=== PATIENT | female | born 1950 | race Caucasian/White ===

== ENCOUNTER → 2017-05-12 15:16 | Outpatient (CLI) | payer MEDICARE, OTHER, SELFPAY ==
--- NOTE | 2017-05-12 15:26 | RAD_ITS ---
STUDY: X-RAY - LUMBAR SPINE REASON FOR EXAM: Female, 66 years old. Pain TECHNIQUE: 5 view(s) of the lumbar spine were obtained. COMPARISON: None FINDINGS: There is curvature at the thoracolumbar region with convexity to the left. There is minimal degenerative spondylolisthesis at L3-L4. There is degenerative disc disease with vacuum phenomenon at L4-L5. Osteopenia. The soft tissue structures are unremarkable. RAD/L/S Spine Min 4 Views IMPRESSION: Minimal degenerative spondylolisthesis, L3-L4 Mild levoscoliosis at the thoracolumbar region Osteopenia Degenerative disc disease, L4-L5 Electronically Signed: Reza Diaz MD at 22:27 EST Tel , Service support ,
== END ==
PROVIDERS: Family Provider Family Medicine; PCP Family Medicine; Visit Provider Family Medicine
DX: S39.012A Strain of muscle, fascia and tendon of lower back, initial encounter (principal); X58.XXXA Exposure to other specified factors, initial encounter
CPT/HCPCS: 72110

== ENCOUNTER → 2017-06-10 08:57 | Outpatient (CLI) | payer MEDICARE, OTHER, SELFPAY ==
--- NOTE | 2017-06-10 09:30 | RAD_ITS ---
STUDY: X-RAY - PELVIS AND LEFT HIP REASON FOR EXAM: Female, 66 years old. Fell off a stepladder feels like hip popped out of place. Pain with weightbearing TECHNIQUE: Radiological exam, hip, unilateral, with pelvis when performed; 2 or 3 views. COMPARISON: None. FINDINGS: There is a non-specific bowel gas pattern. Normal visualized soft tissue structures. There is mild narrowing with cortical sclerosis and osteophyte formation of the sacroiliac joint consistent with degenerative osteoarthritic changes. Normal bilateral superior and inferior pubic rami. There are mild degenerative changes of the pubic symphysis with articular narrowing and sclerosis. Normal bilateral ischial tuberosities. Normal visualized femoral head. Normal acetabulum. There is mild articular joint space narrowing of the hip. RAD/Hip 2-3 Views with Pelvis IMPRESSION: Mild degenerative changes. There is no acute displaced fracture or dislocation. Electronically Signed: Naomy Rodriguez MD at 7:37 EDT , Service support ,
== END ==
PROVIDERS: Family Provider Family Medicine; PCP Family Medicine; Visit Provider Family Medicine
DX: M25.552 Pain in left hip (principal)
CPT/HCPCS: 73502

== ENCOUNTER → 2017-07-02 12:53 | Outpatient (CLI) | payer MEDICARE, OTHER, SELFPAY ==
--- NOTE | 2017-07-02 12:55 | BI_ITS ---
MAMMOGRAPHY - BILATERAL SCREENING 3-D AGUSTÍN SYNTHESIS REASON FOR EXAM: Female, 66 years old. Bilateral Screening 3-D tomosynthesis PERTINENT HISTORY: No significant family history. TECHNIQUE: 2-D mammograms and 3-D Agustín synthesis of the breast (s) were performed. CAD was performed. COMPARISON: June 03, 2016. FINDINGS: The breast composition is composed of scattered fibroglandular density. Scattered benign calcifications are seen. No dense spiculated masses or suspicious microcalcifications are identified. No architectural distortion is identified. There is no skin thickening or retraction. There has been no significant change since the prior study. BI/SCREENING MAMM (CAD), BILAT IMPRESSION: No mammographic signs of malignancy. Routine yearly mammograms recommended. ASSESSMENT CATEGORY: BIRADS Category 1: Negative. A letter regarding these results will be sent to the patient by the facility within 30 days. FOLLOW UP RECOMMENDATION: Yearly follow up mammogram recommended. (A) Approximately 10% of breast cancers are not detected by mammography. A normal mammogram should not delay biopsy of a clinically suspicious abnormality. Electronically Signed: Micah Meyer MD at 15:22 EDT , Service support ,
== END ==
PROVIDERS: Family Provider Family Medicine; PCP Family Medicine; Visit Provider Family Medicine
DX: Z12.31 Encounter for screening mammogram for malignant neoplasm of breast (principal)
CPT/HCPCS: 77063; 77067

== ENCOUNTER → 2017-07-09 13:46 | Outpatient (CLI) | payer MEDICARE, OTHER, SELFPAY ==
--- NOTE | 2017-07-09 13:48 | CT_ITS ---
Exam: CT of the left hip. HISTORY: Trauma. Pain. COMPARISON: None DLP: 1333 CTDI: 47 FINDINGS: No acute fracture or dislocation. Normal bone contours. Mineralization appears within normal limits. No significant degenerative changes. Visualized soft tissues suggest a 7 cm soft tissue mass in the left pelvis, probably PICKER / PACKER origin. Suggest further evaluation with ultrasound. CT/Extremity Lower without Contra IMPRESSION: Normal appearance of the visualized left pelvis and hip. 7 cm soft tissue mass in the left pelvis. Electronically Signed: Gil Alexander MD at 15:19 EDT , Service support ,
== END ==
PROVIDERS: Family Provider Family Medicine; PCP Family Medicine; Visit Provider Family Medicine
DX: M25.552 Pain in left hip (principal)
CPT/HCPCS: 73700

== ENCOUNTER → 2017-07-13 13:40 | Outpatient (CLI) | payer MEDICARE, OTHER, SELFPAY ==
--- NOTE | 2017-07-13 14:18 | US_ITS ---
STUDY: ULTRASOUND OF THE FEMALE PELVIS - COMPLETE REASON FOR EXAM: Female, 67 years old. Status post hysterectomy. Left pelvic mass. LMP: TECHNIQUE: Transabdominal and Transvaginal TECHNICAL QUALITY: Adequate. COMPARISON: CT of the left hip, July 09, 2017. FINDINGS: The uterus is surgically absent. The right ovary is not visualized. There is no visualized right adnexal mass or complex lesion. The left ovary is visualized. The left ovary measures 6.9 x 5.6 x 4.7 cm. There is a 6.7 x 4.5 x 4.6 cm cyst. There is no visualized left adnexal mass or complex lesion. There is normal arterial and normal venous vascularity. There is no fluid in the cul-de-sac. The pre void volume of the bladder was 330 ml. The urinary bladder appears grossly normal. US/Pelvic (Non ) IMPRESSION: 1. Status post hysterectomy. 2. Large left ovarian cyst. This correlates with the mass seen on CT. 3. Nonvisualization of left ovary. Electronically Signed: Walt Browne DO at 21:54 EDT Tel [phone], Service support ,
--- NOTE | 2017-07-13 14:18 | US_ITS ---
STUDY: ULTRASOUND OF THE FEMALE PELVIS - COMPLETE REASON FOR EXAM: Female, 67 years old. Status post hysterectomy. Left pelvic mass. LMP: TECHNIQUE: Transabdominal and Transvaginal TECHNICAL QUALITY: Adequate. COMPARISON: CT of the left hip, July 09, 2017. FINDINGS: The uterus is surgically absent. The right ovary is not visualized. There is no visualized right adnexal mass or complex lesion. The left ovary is visualized. The left ovary measures 6.9 x 5.6 x 4.7 cm. There is a 6.7 x 4.5 x 4.6 cm cyst. There is no visualized left adnexal mass or complex lesion. There is normal arterial and normal venous vascularity. There is no fluid in the cul-de-sac. The pre void volume of the bladder was 330 ml. The urinary bladder appears grossly normal. US/Transvaginal Non- IMPRESSION: 1. Status post hysterectomy. 2. Large left ovarian cyst. This correlates with the mass seen on CT. 3. Nonvisualization of left ovary. Electronically Signed: Walt Browne DO at 21:54 EDT Tel [phone], Service support ,
== END ==
PROVIDERS: Family Provider Family Medicine; PCP Family Medicine; Visit Provider Family Medicine
DX: R19.00 Intra-abdominal and pelvic swelling, mass and lump, unspecified site (principal)
CPT/HCPCS: 76830; 76856

== ENCOUNTER → 2017-10-01 09:17 | Outpatient (CLI) | payer MEDICARE, OTHER, SELFPAY ==
[2017-10-02 10:37] LABS: Cancer Antigen 125 8.9 U/mL (0.0-38.1)
== END ==
PROVIDERS: Family Provider Family Medicine; PCP Family Medicine; Visit Provider Obstetrics & Gynecology
DX: N83.202 Unspecified ovarian cyst, left side (principal)
CPT/HCPCS: 36415; 86304

== ENCOUNTER 2017-10-21 11:29 | Day surgery (SDC) | payer MEDICARE, OTHER, SELFPAY ==
[2017-10-17 09:19] LABS: Absolute Lymphocyte Count 2.78 X10^3/ul (0.83-4.51); Absolute Neutrophil Count 2.8 X10^3/uL (2.0-7.7); Basophil# 0.03 X10^3/uL; Basophil% 0.5 % (0-1); Eosinophil# 0.19 X10^3/uL; Hematocrit 38.9 % (37-47); Hemoglobin 13.2 g/dl (12.0-15.0); Lymphocyte # 2.78 X10^3/ul (4.0); Lymphocyte % 44.6 % (19-41); Mean Corp Hgb Conc 33.9 g/gl (32-36); Mean Corpuscular Hgb 28.9 pg (27.0-32.0); Mean Corpuscular Volume 85.3 fL (81-99); Mean Platelet Vol. 10.7 fl (6.2-12.0); Monocyte# 0.46 X10^3/uL; Monocyte% 7.4 % (0-10); Neutrophil # 2.78 X10^3/uL (2.7-7.7); Neutrophil % 44.5 % (47-70); POSITIVE COUNT NO; POSITIVE DIFFERENTIAL NO; POSITIVE MORPHOLOGY NO; Platelet Count 197 K/mm3 (150-450); RBC Distribution Width CV 12.8 % (11.6-14.6); RBC Distribution Width SD 39.1 fl (35.1-43.9); Red Blood Count 4.56 M/mm3 (4.2-5.4); White Blood Count 6.2 K/mm3 (4.4-11.0)
[2017-10-17 09:44] LABS: Anion Gap 10 (5-15); BUN 14 mg/dL (7-18); BUN/Creat Ratio 14.5 RATIO (10-20); Calcium,Total 8.6 mg/dL (8.5-10.1); Chloride 102 mmol/L (98-107); Creatinine, Serum 0.96 mg/dL (0.55-1.02); EST Glomerular Filtration Rate 61 mL/min (>60); Est Glom Filt Rate - Afr Amer 74 mL/min (>60); Glucose 92 mg/dL (74-106); Potassium 4.1 mmol/L (3.5-5.1); Sodium Level 141 mmol/L (136-145)
--- NOTE | 2017-10-21 06:53 | PCM.HPOB.BLA ---
- Problem List (1) Left ovarian cyst Status: Acute Comment: referred by dr summers =, 6.7 cm cyst on left ovary, cea and ca 125 ordered History and Physical Date of Admission: 10/21/17 Vital Signs 10/01/17 Height 5 ft 7.5 in 10/01/17 Weight: 262 lb 6 oz 10/01/17 Body Mass Index (BMI) 40.4 10/01/17 Blood Pressure 147/77 Intake Visit Reasons: Left ovarian cyst referral from Chief Complaint: ovarian cyst, referral [employer] Required: No Is patient in pain?: No Allergies No Known Allergies Allergy (Unverified 10/01/17 08:26) Medications aspirin 81 mg chewable tablet 81 mg PO QDAY 10/01/17 [History Confirmed 10/01/17] atenolol 50 mg tablet 50 mg PO QDAY 10/01/17 [History Confirmed 10/01/17] cholecalciferol (vitamin D3) 1,000 unit capsule 1,000 unit PO QDAY 10/01/17 [History Confirmed 10/01/17] coenzyme Q10 100 mg capsule 100 mg PO QDAY 10/01/17 [History Confirmed 10/01/17] glucosam 750 mg-chondroi 100 mg-hyalur 1.65 mg-CF borate 108 mg tablet tab PO 10/01/17 [History Confirmed 10/01/17] losartan 100 mg-hydrochlorothiazide 12.5 mg tablet 1 tab PO QDAY 10/01/17 [History Confirmed 10/01/17] multivit with oaxbnynn-cfrm-ZQ-lutein 8 mg iron-400 mcg-300 mcg tablet tab PO 10/01/17 [History Confirmed 10/01/17] naproxen sodium 220 mg capsule 220 mg PO BID 10/01/17 [History Confirmed 10/01/17] omega 5-ehy-ici-fish oil 1,000 mg (120 mg-180 mg) capsule cap PO 10/01/17 [History Confirmed 10/01/17] simvastatin 20 mg tablet 20 mg PO QPM 10/01/17 [History Confirmed 10/01/17] Is last menstrual period known: No Post menopausal: Yes Patient : No : No PFSH Surgical History H/O eye surgery (Acute) H/O: hysterectomy (Acute) History of tonsillectomy (Acute) Family History Unknown Diabetes Mother Cancer colon Aunt Breast cancer Uncle Cancer melanoma Grandfather Cancer stomach Social History Smoking Status: Never smoker alcohol intake: never substance use type: does not use caffeine: Yes what type of physical activity do you participate in: walking seatbelt use: always do you feel safe at home: Yes 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 She has had some intermittent bloating and left sided pain and discomfort. she denies any weight changes and denies vaginal bleeding. Pregancy History 2 Elective abortions Hx Para 2 Spontaneous abortions Hx # Term Pregnancies Ectopic pregnancies Hx # Pregnancies Multiple births # of living children Past Pregnancies Del. Date Name GA/Weeks Outcome Route Bth Weight Infant Gen Labor Lgth Anesthesia Del Locatn Provider FOB Unknown 1973 Bud Unknown 1977 Paul ROS Const Constitutional: Denies poor appetite, headache(s), fever(s), increased appetite, weight gain, weight loss or fatigue ENT ENT: Denies dizziness or dry mouth Cardio Card: Denies chest pain Resp Resp: Denies dyspnea or cough : Reports as per HPI; denies urinary urgency, vaginal discharge, urinary frequency, vaginal itching, vaginal odor, vaginal dryness, urinary incontinence, urinary hesitancy, pelvic pain, difficulty urinating or painful urination Musc Musc: Denies muscle weakness, joint pain or back pain Skin Skin/Breast: Denies hair loss, change in hair, dry skin, breast pain, breast skin changes or breast lump Neuro Neuro: Denies dizziness Psych Psych: Denies anxiety or depression Endo Endo: Denies cold intolerance, increased thirst, excessive sweating or heat intolerance Justin/Lymph Hematologic/Lymphatic: Denies easy bleeding, Denies easy bruising, Denies enlarged lymph nodes Exam Const General: cooperative, healthy appearing, comfortable, no acute distress, well developed Nutritional Appearance: average body habitus Orientation: alert HENIA Head: normal to inspection, normocephalic Ears: hearing grossly normal bilaterally, external ears normal Nose: external nose normal, nares normal Face and sinus: normal facial exam Neck Neck: normal visual inspection, trachea midline, no lymphadenopathy Thyroid: thyroid normal Chest Chest palpation & inspection: normal inspection of the chest Resp Effort & Inspection: normal respiratory effort Auscultation: clear to auscultation bilaterally Cardio Rate: regular rate Rhythm: regular rhythm GI Inspection: normal to inspection, non-distended Palpation: soft, no hepatosplenomegaly Musc Cervical Spine: other Other: gross motor intact no deficits, full bilateral strength Skin General: no rashes or lesions noted Neuro General: alert, awake, no focal motor deficits, moves all extremities Motor: muscle tone normal throughout Extrem General: normal to inspection, no pedal edema Psych Appearance: grossly normal Mental Status: mental status grossly normal Affect: normal affect Speech and Movement: speech and movement normal Assessment & Plan Problems 1. Left ovarian cyst N83.[address] summers =, 6.7 cm cyst on left ovary, cea and ca 125 ordered Plan discussed surgical management due to symptoms and size and risk for torsion. recommend laparoscopic BSO. discussed surgical risks including risks of anesthesia, infection, bleeding, injury to bowel, bladder or blood vessels, and patient wishes to proceed with surgery. recommend checking lab work. UPDATE- I have seen the patient and performed any clinically relevant updates to the history and physical exam. Iram Maddox MD
[2017-10-21 11:56] VITALS: BP 177/67; PULSE 54; RESP 16; TEMP 36.4; O2SAT 100; BMI 40.2
[2017-10-21] MEDS: Bupivacaine 0.25% 30 ML Vial (12:18)
--- NOTE | 2017-10-21 13:00 | OV_PTH ---
PATIENT: DEENA SARABIA [place] [facility] [id number] AGE/SX: 67/F ROOM: RE10/21/[address]: Dr. Iram Maddox MD : 1950 BED: DIS: 10/21/2017 SPEC #: [id number] RECD: 10/21/17 14:54 STATUS: RYAN REChristopher #: [id number] CHRIST: 10/21/17 13:[address]: Iram Maddox DEPT: SURGICAL PATHOLOGY RECD BY: Thierry Chamorro ENTERED: 10/22/17 09:58 SP TYPE: OVARY OTHR DR: Dr. Juan Summers MD Tissues: Ovary, NOS Procedures: Surgery Specimen Level V HEADER OPERATION: Laparoscopic bilateral salpingo-oophorectomy with pelvic washings PRE-OP DIAGNOSIS: Left ovarian cyst TISSUE SUBMITTED: Bilateral fallopian tubes and ovaries (larger ovary is left ovary) MICROSCOPIC DIAGNOSIS Right and left fallopian tubes and ovaries, bilateral salpingo-oophorectomies: Right fallopian tube and ovary - consistent with benign serous cystadenoma. Fallopian tube with no pathologic change. Left fallopian tube and ovary ? papillary serous cystadenofibroma. Fallopian tube with no pathologic change. AM:nancy 10/23/17 MICROSCOPIC DESCRIPTION Slides are reviewed. GROSS DESCRIPTION Received in fixative is one container labeled with the patient's name and designated bilateral fallopian tubes and ovaries. The specimen consists of bilateral fallopian tubes and ovaries. The right fallopian tube measures 4 cm in length and up to 0.7 cm in diameter. The fimbrial end is identified. Sections reveal unremarkable cut surfaces. The right ovary measures 2.5 x 1.5 x 1 cm. Sections reveal unremarkable cut surfaces. No tubo-ovarian adhesions are identified. The left fallopian tube measures 4?cm in length and 0.5 cm in diameter. Sections reveal unremarkable cut surfaces. No tubo-ovarian adhesions are identified. The soft to cystic left ovary measures 6 x 5.5 x 4 cm and weighs 58 gm. The outer surface is smooth and inked black. The entire ovary is replaced by a cyst filled with clear, yellow fluid. A focal sold area including papillation is noted which measures 2 x 1.5 x 1 cm. The cyst wall measures 0.1 to 0.2 cm in thickness. This area also shows multiple cysts filled with clear fluid. Vb Developer sections are submitted in eight cassettes as follows: 1-3 ? right fallopian tube and ovary (1 ? fallopian tube, 2 & 3 ? ovary, entirely submitted), 4 ? left fallopian tube, entirely submitted, 5-8 ? account representative sections of right ovary (5 & 6 contain the area of papillation. / PREM:nancy 10/22/17 TC:1 CPT: 01784 x2
--- NOTE | 2017-10-21 13:00 | FLU_PTH ---
PATIENT: DEENA SARABIA LOC: [facility] [place][id number] AGE/SX: 67/F ROOM: RE10/21/[address]: Dr. Iram Maddox MD : 1950 BED: DIS: 10/21/2017 SPEC #: [id number] RECD: 10/22/17 09:58 STATUS: RYAN VIRIDIANA #: [id number] CHRIST: 10/21/17 13:[address]: Iram Maddox DEPT: CYTOLOGY RECD BY: Thierry Chamorro ENTERED: 10/22/17 09:59 SP TYPE: Fluid OTHR DR: Dr. Juan Summers MD Tissues: A - Pelvis, NOS B - OVARIAN CYST Procedures: Pap Stain (control) Special Stain Group II Surgery Specimen Level IV Cell Block Cytospin Fluid HEADER OPERATION: Laparoscopic bilateral salpingo-oophorectomy with pelvic washings PRE-OP DIAGNOSIS: Left ovarian cyst TISSUE SUBMITTED: A ? Pelvic washings for cytology, B ? Left ovarian cyst fluid for cytology DIAGNOSIS CYTOLOGY A. Pelvic washings (cytospin and cell block): Reactive mesothelial cells. No evidence of malignancy. B. Left ovarian cyst, fine needle aspiration (cytospin and cell block): Macrophages consistent with benign cyst contents. AM:nancy 10/23/17 COMMENT A & B. Please see corresponding salpingo-oophorectomies ([id number]). CYTOLOGY STUDY Slides are reviewed. CYTOLOGY GROSS A - Received is 20 ml of red, cloudy fluid labeled with the patient's name and and designated per the requisition as pelvic washings. Submitted for cytology preparation including cell block. B - Received is 20 ml of gold, cloudy fluid labeled with the patient's name and and designated per the requisition as left ovarian cyst. Submitted for cytology preparation including cell block. 10/22/17 TC:5 CPT: 11624, 03020 x2, 95360
--- NOTE | 2017-10-21 13:52 | OP.PCM_ITS ---
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 Bladder was drained of clear urine and SCDs were on preoperatively. Attention was then paid to the abdominal portion of the procedure and the umbilicus was elevated with towel clamps and injected with Marcaine and after a 5 mm incision was made and the Veress needle was entered into the abdomen confirmed to be intra-abdominal with a low opening pressure of less than 5 mmHg. Abdomen was insufflated with CO2 gas and a 12 mm optical trocar was placed under direct visualization. A right and left lower quadrant 5 mm port and a 5 mm port suprapubically replaced under direct visualization. the left sigmoid colon was adhesed to the pelvic side wall and this was taken down sharply with the ligasure device. The retroperitoneum was then opened up and dissected and the ovarian vessels isolated and ligated. the ovary was dissected out from under the pelvic side wall adhesions and the ovary removed without complications and with excellent hemostasis. this was repeated on the right side with minimal dissection needed due to normal anatomy and small ovarian size. Excellent hemostasis was noted. ovaries were removed from the umbilical site within a bag and the ovary was ruptured outside of the body and drained with no intraoperative intraperitoneal rupture. Liver and upper abdomen were visualized notably within normal limits and no other gross abnormalities were seen in the abdomen. All instruments removed from the abdomen after gas was desufflated. umbilical fascial incision was closed with o vicryl. Port sites were closed with 3-0 Monocryl Steri's and op sites were applied. All instruments removed from the vagina and patient was awoken and taken recovery in stable condition. Grafts/Implants Used: toro - Complications none - Admit VTE Documentation VTE Present on Admission: No
--- NOTE | 2017-10-21 14:41 | PCM.DC.TUB ---
Discharge Diet: No Restrictions - Increase fluid intake for the next 48 hours. Discharge Activity: Return to Normal Activity, May Drive - when you are no longer taking narcotic pain medications., May Shower, May Take a Tub Bath - in 7 days Additional Activity Instructions:: Ambulate often the next week after surgery. Nothing in the vagina for 5 days. Call your doctor if your incision/area has: Continuous Slow Oozing, Sudden Increased Bleeding, Increased Pain/ Swelling, Increased Redness, Foul Smelling Discharge Call your doctor if you observe: Fever of 101 or Higher Allergies/Adverse Reactions: Allergies No Known Allergies Allergy (Unverified 10/14/17 14:53) Medications to take at Discharge aspirin 81 mg chewable tablet 81 mg PO QDAY 10/01/17 atenolol 50 mg tablet 50 mg PO QDAY 10/01/17 cholecalciferol (vitamin D3) 1,000 unit capsule 1,000 unit PO QDAY 10/01/17 coenzyme Q10 100 mg capsule 100 mg PO QDAY 10/01/17 glucosam 750 mg-chondroi 100 mg-hyalur 1.65 mg-CF borate 108 mg tablet 1 tab PO DAILY 10/01/17 losartan 100 mg-hydrochlorothiazide 12.5 mg tablet 1 tab PO QDAY 10/01/17 multivit with bkeuysma-uekt-FF-lutein 8 mg iron-400 mcg-300 mcg tablet 1 tab PO DAILY 10/01/17 naproxen sodium 220 mg capsule 1 tab PO DAILY 10/01/17 omega 0-inf-tgc-fish oil 1,000 mg (120 mg-180 mg) capsule 1 cap PO DAILY 10/01/17 simvastatin 20 mg tablet 20 mg PO QPM 10/01/17 Naproxen [Naprosyn] 250 - 500 mg PO Q8H PRN PRN #30 tab 10/21/17 Oxycodone HCl/Acetaminophen [Percocet 5-325] 1 - 2 tablet PO Q4H PRN PRN 7 Days #15 tablet 10/21/17 The following prescriptions were given: Oxycodone HCl/Acetaminophen [Percocet 5-325] 1 - 2 tablet PO Q4H PRN PRN 7 Days #15 tablet PRN Reason: Pain Naproxen [Naprosyn] 250 - 500 mg PO Q8H PRN PRN #30 tab PRN Reason: MILD PAIN Primary Care Physician: Juan Summers MD [Primary Care Provider] - Test Results: Test results from this visit will be discussed in further detail at your follow-up appointment, if applicable. Please Follow Up With: Iram Maddox MD - [phone]
[2017-10-21 14:46] VITALS: BP 141/76; BP 177/67; PULSE 69; RESP 18; TEMP 36.3; O2SAT 97
[2017-10-21 15:00] VITALS: BP 135/82; BP 177/67; PULSE 59; RESP 18; O2SAT 97
[2017-10-21 15:15] VITALS: BP 130/71; BP 177/67; PULSE 58; RESP 18; O2SAT 97
[2017-10-21 15:30] VITALS: BP 138/80; BP 177/67; PULSE 61; RESP 18; TEMP 36.1; O2SAT 95
[2017-10-21] MEDS: HYDROcodone Bitartrate/Apap 5/325 Tablet PO (17:24)
[2017-10-21 18:57] VITALS: BP 148/75; BP 177/67; PULSE 63; RESP 18; TEMP 36.8; O2SAT 100
--- NOTE | 2017-10-21 18:59 | SUR.PHASEII ---
PATIENT UNABLE TO VOID, BLADDER SCANNED FOR 214 ML, DENIES PAIN, TENDERNESS, DISTENTION OVER BLADDER. DR WORKMAN NOTIFIED, ORDERED JULY D/C HOME, INSTRUCT TO DRINK PLENTY OF FLUIDS, CALL MD IF UNABLE TO VOID WITHIN 6 TO 8 HOURS.
[2017-10-26 10:06] LABS: Cytology, Body Fluid / CSF SEE PATHOLOGY REPORT
[2017-11-02 12:41] LABS: Cytology, Body Fluid / CSF SEE PATHOLOGY REPORT
== END 2017-10-21 19:16 | disposition home or self-care (01) ==
LOC: SDC 11:29 → AC 11:30
PROVIDERS: Family Provider Family Medicine; PCP Family Medicine; Visit Provider Obstetrics & Gynecology
PROC: (CPT 58661; principal; 2017-10-21 12:45)
DX: D27.1 Benign neoplasm of left ovary (principal); E78.00 Pure hypercholesterolemia, unspecified; I10 Essential (primary) hypertension; Z79.82 Long term (current) use of aspirin; Z79.899 Other long term (current) drug therapy
CPT/HCPCS: 58661; 36415; 80048; 85025; 86850; 86900; 88108; 88305; 88307; 88313; 93005; J7120; J2405

== ENCOUNTER → 2018-08-03 | Outpatient (CLI) | payer MEDICARE, OTHER, SELFPAY ==
[2017-11-04 10:39] VITALS: BMI 38.9
[2018-08-03 12:45] LABS: Anion Gap 5 (5-15); BUN 16 mg/dL (7-18); BUN/Creat Ratio 17.1 RATIO (10-20); Calcium,Total 9.5 mg/dL (8.5-10.1); Chloride 103 mmol/L (98-107); Cholesterol 145 mg/dL (200); Creatinine, Serum 0.94 mg/dL (0.55-1.02); EST Glomerular Filtration Rate 63 mL/min (>60); Est Glom Filt Rate - Afr Amer 77 mL/min (>60); Glucose 102 mg/dL (74-106); High Density Lipoprotein 45 mg/dL; Potassium 4.2 mmol/L (3.5-5.1); Sodium Level 138 mmol/L (136-145); Triglycerides 133 mg/dL; Very Low Density Lipoprotein 27 mg/dL (5-40)
== END | disposition home or self-care (01) ==
LOC: MFPLAB 09:36
PROVIDERS: Family Provider Family Medicine; PCP Family Medicine; Referring Provider Family Medicine; Visit Provider Family Medicine
DX: I10 Essential (primary) hypertension (principal); E78.00 Pure hypercholesterolemia, unspecified
CPT/HCPCS: 36415; 80048; 80061

== ENCOUNTER → 2018-08-25 | Outpatient (CLI) | payer MEDICARE, OTHER, SELFPAY ==
--- NOTE | 2018-08-25 10:47 | BI_ITS ---
MAMMOGRAPHY - BILATERAL SCREENING REASON FOR EXAM: Female, 68 years old. Routine annual screening examination. PERTINENT HISTORY: Grandmother with breast cancer. TECHNIQUE: Digital bilateral breast agustín (3D mammographic acquisition) in the CC and MLO projections. 2-D mediolateral oblique (MLO) and craniocaudad (CC) views of both breasts were obtained. CAD: Full Field Digital Mammography with Computer Added Detection was performed. COMPARISON: Comparison is made with prior examination dated July 02, 2017 and June 03, 2016. FINDINGS: Breast Composition: There are scattered areas of fibroglandular density. There are no dominant masses or suspicious calcifications. Stable small bilateral axillary lymph nodes. No other significant abnormalities are identified. There has been no significant change since the prior study. BI/SCREEN MAMM (CAD) W/AGUSTÍN BILAT IMPRESSION: Stable bilateral screening mammogram. Yearly follow-up mammogram recommended. (A) ASSESSMENT CATEGORY: BIRADS Category 2: Benign. A letter regarding these results will be sent to the patient by the facility within 30 days. Approximately 10% of breast cancers are not detected by mammography. A normal mammogram should not delay biopsy of a clinically suspicious abnormality. [id number] Electronically Signed: Chalo Laird, at 12:58 EDT , Service support ,
== END | disposition home or self-care (01) ==
LOC: OPBI 10:46
PROVIDERS: Family Provider Family Medicine; PCP Family Medicine; Referring Provider Family Medicine; Visit Provider Family Medicine
DX: Z12.31 Encounter for screening mammogram for malignant neoplasm of breast (principal)
CPT/HCPCS: 77063; 77067

== ENCOUNTER 2019-01-27 13:00 | Outpatient (RCR) | payer MEDICARE, OTHER, SELFPAY ==
--- NOTE | 2018-12-22 10:36 | HP.PTEVAL ---
Patient's Visit Information DEENA SARABIA is a 68 year old F referred to Physical Therapy by Juan Luna MD with a diagnosis of L rot cuff tendonitis. Date of Evaluation: 12/22/18 Physical Therapist: Erasmo Al PT, ATC - Visit Plan Frequency: 2x /Week Duration: 1 Week Plan: Issue and instruct on HEP of rot cuff strengthening and scap stab ex's - Subjective Findings: Pt reported that L rot cuff start hutring about 2 months ago. Pt does not recall a specific event that caused the pain. Pt is R-handed. Pt reports that pain only occurs when moving L shoulder. Pt rates pain at rest as 0/10. Pt rates pain at 8/10 when moving L shoudler. Pt states reaching behind back and overhead cause her the most pain. Pt states that removing bra is difficult for her, as well as combing hair if she reaches far back enough. Pt states pain will radiate down her arm to the wrist if she moves it in a painful position. Pt describes pain as dull, aching. No imaging done for L shoulder. Pt previously gone to chiropractor. Pt reports soreness/pain in upper region of rot cuff. - Pain L shoulder Pain Intensity (Out of 10): 0 Pain Intensity Range: 8 - Objective Neuro: B UE sensation is WNL to light touch. B bicepital reflex= 2/3. Palpation: Pt is sore on the distribution of the supraspinatus. No obvious deformity present. ROM: R shoulder flex= 150, abd= 125, ER= 60, IR WNL. L shoulder flex= 85, abd= 68, ER= 60, IR= moderately limited. MMT: L shoulder ER and abd= 4-/5 and are painful. All other UE 5/5 throughout. Special tests: Pos empty can, HK - Goals Goal 1:: I with HEP Goal Time Frame: 2 Weeks - Rehabilitation Potential Physical Therapy Diagnosis: L shoulder pain, weakness, and limited ROM secondary to L shoulder rot cuff tendonitis Rehabilitation Potential: Good - Anticipated Interventions Patient/Client Instruction: Educate patient on: Condition, Plan of Care For the Purpose of:: To improve self management Therapeutic Exercise to Include: Strength training, Endurance training, Flexibilty training, Scapular Strength/Stabilization For the Purpose of:: To decrease pain, To increase ROM, To improve muscle performance and motor function Cryotherapy (ice pack, ice massage): Yes For the Purpose of:: To decrease pain Thank you for the opportunity to evaluate your patient. For Medicare and Medicare HMO plans, please review the plan of care and approve it. It will need to be FAXED BACK to us at [phone] for Medicare purposes. For Medicare only, by signing this I certify the plan of care. Please let me know if there are questions or concerns regarding this plan of care. Physician Signature: Date:
--- NOTE | 2019-01-27 13:34 | HP.PTDCSUM ---
HP - PT D/C Summary It has been my pleasure to treat DEENA SARABIA under orders from Juan Luna MD, for the diagnosis of L rot cuff tendonitis for a total of 4 visit(s). Discharge Date: Please see the following information for a summary of their discharge status. - Subjective Subjective: No pain at rest, increases to 8/10 at worst - Pain L shoulder Pain Intensity (Out of 10): 0 - Overall Improvement % Improvement: 50 - Objective Objective/Function: L shoulder pain ranges from 0-8/10. L shoulder ROM: flex= 130, abd= 110, ER= 65, IR WNL. L shoulder MMT: 5/5 throughout avialable ROM. Pt is I with HEP. Rx goals achieved - Goals Goal 1:: I with HEP Goal Progress: Goal Met - Plan Plan: Discharge to HEP - D/C Information If there are questions or concerns regarding this patient's physical therapy, please feel free to call me at [phone]. Thank you for the referral of this patient. Sincerely, Erasmo Al, PT, ATC
== END 2019-01-27 19:00 | disposition home or self-care (01) ==
LOC: PT 13:00
PROVIDERS: Family Provider Family Medicine; PCP Family Medicine; Referring Provider Family Medicine; Visit Provider Family Medicine
DX: M75.102 Unspecified rotator cuff tear or rupture of left shoulder, not specified as traumatic (principal)
CPT/HCPCS: 97110; 97161; 97530

== ENCOUNTER → 2019-05-10 | Outpatient (CLI) | payer MEDICARE, OTHER, SELFPAY ==
[2019-02-04 14:35] VITALS: BMI 38.9
--- NOTE | 2019-05-10 12:38 | STEWCON_ITS ---
Reason For Study: [place] Stress Results Protocol: Dobutamine Stress Protocol Maximum Predicted HR: 153 bpm Target HR: 130 bpm % Maximum Predicted HR: 112 % Heart Stage Duration Rate BP Dose Comment (mm:ss) (bpm) BASELINE 63 162/84 DILUTED DEFINITY 5 ML USED DSE- 10 MCG 3:41 78 152/7210.00NO SX DSE- 20 MCG 3:08 117 140/6320.00NO SX, RATE DEPENDENT BBB NOTED DSE- 30 MCG 3:13 122 144/7530.00NO SX DSE- 40 ATROPINE 0.25 MG IVP GIVEN @ 1337, ATROPINE 0.25 MG IVP GIVEN MCG 4:30 171 .00@ 1340, SVT VS ATRIAL TACHYCARDIA NOTED AFTER IVP RECOVERY 87 144/77 PT STATES SHE FEELS LESS SHAKEY, DENIES CP Stress Duration: 14:32 mm:ss Maximum Stress HR: 171 bpm Baseline Echocardiogram Findings Stress Echo Wall motion Data Resting WM Intermediate WM Stress WM Resting Wall Motion Wall Motion Int. Wall Motion Stress All segments Normal. All segments Hyperkinetic. All segments Hyperkinetic. Ejection Fraction 55 %. Ejection Fraction 65 %. Ejection Fraction 75 %. Stress Results Arrhythmias: Occasional PVC during dobutamine infusion and recovery; brief episode of a PSVT compatible with an ectopic atrial tachycardia at peak infusion and early recovery with spontaneous return to baseline Stopped secondary to: Target heart rate achieved. EKG Data Baseline ECG: Normal sinus rhythm. Peak pharmacologic ECG: Sinus tachycardia with a right bundle branch block pattern (compatible with a rate-dependent right bundle branch block pattern). Symptoms with Stress No complaint of chest discomfort during pharmacologic infusion or recovery considered compatible with angina pectoris. Interpretation Summary 1. Technically difficult study 2. Contrast injection performed 3. Negative (dobutamine) stress echocardiogram Ordering Physician: Juan Luna Referring Physician: Juan Luna Performed By: Jackie Rae RDCS
== END | disposition home or self-care (01) ==
PROVIDERS: PCP Family Medicine; Referring Provider Family Medicine; Visit Provider Family Medicine
DX: R06.09 Other forms of dyspnea (principal)
CPT/HCPCS: 93017; 93350; J7040; Q9957; A4216; C8928

== ENCOUNTER → 2019-08-05 | Outpatient (CLI) | payer MEDICARE, OTHER, SELFPAY ==
[2019-02-04 14:35] VITALS: BMI 38.9
[2019-08-05 12:53] LABS: Erythrocyte Sedimentation Rate 17 mm/hr (0-30)
[2019-08-05 14:06] LABS: AST(SGOT) 21 U/L (15-37); Alanine Aminotransfer ALT/SGPT 29 U/L (13-56); Albumin, Serum 3.9 g/dL (3.2-5.0); Alkaline Phosphatase 70 U/L (45-117); Anion Gap 7 (5-15); BUN 20 mg/dL (7-18); CRP 3.26 mg/L (0.0-3.0); Calcium,Total 9.3 mg/dL (8.5-10.1); Chloride 106 mmol/L (98-107); Cholesterol 163 mg/dL (200); EST Glomerular Filtration Rate 59 mL/min (>60); Est Glom Filt Rate - Afr Amer 71 mL/min (>60); Globulin 3.8 g/dL (2.2-4.2); Glucose 95 mg/dL (74-106); High Density Lipoprotein 50 mg/dL; Potassium 3.9 mmol/L (3.5-5.1); Protein, Total 7.7 g/dL (6.4-8.2); Rheumatoid Factor < 10.0 IU/mL (<15); Sodium Level 142 mmol/L (136-145); Triglycerides 136 mg/dL; Very Low Density Lipoprotein 27 mg/dL (5-40)
[2019-08-08 16:30] LABS: ANTINUCLEAR ANTIBODIES DIRECT Negative (Negative)
== END | disposition home or self-care (01) ==
LOC: MFPLAB 10:12
PROVIDERS: PCP Family Medicine; Visit Provider Family Medicine
DX: I10 Essential (primary) hypertension (principal); M25.50 Pain in unspecified joint
CPT/HCPCS: 36415; 80053; 80061; 84550; 85652; 86038; 86140; 86431

== ENCOUNTER → 2019-09-06 | Outpatient (CLI) | payer MEDICARE, OTHER, SELFPAY ==
[2019-02-04 14:35] VITALS: BMI 38.9
--- NOTE | 2019-09-06 15:21 | BI_ITS ---
MAMMOGRAPHY - BILATERAL SCREENING REASON FOR EXAM: Female, 69 years old. Routine annual screening examination. PERTINENT HISTORY: Grandmother with breast cancer. Aunt with breast cancer. TECHNIQUE: Digital bilateral breast agustín (3D mammographic acquisition) in the CC and MLO projections. 2-D mediolateral oblique (MLO) and craniocaudad (CC) views of both breasts were obtained. CAD: Full Field Digital Mammography with Computer Added Detection was performed. COMPARISON: Comparison is made with prior study dated August 25, 2018 and July 02, 2017. FINDINGS: Breast Composition: There are scattered areas of fibroglandular density. There are no dominant masses or suspicious calcifications. No other significant abnormalities are identified. There has been no significant change since the prior study. BI/SCREEN MAMM (CAD) W/AGUSTÍN BILAT IMPRESSION: Stable bilateral screening mammogram. Yearly follow-up mammogram recommended. (A) ASSESSMENT CATEGORY: BIRADS Category 1: Negative. A letter regarding these results will be sent to the patient by the facility within 30 days. Approximately 10% of breast cancers are not detected by mammography. A normal mammogram should not delay biopsy of a clinically suspicious abnormality. [id number] Electronically Signed: Chalo Laird, at 10:33 EDT , Service support ,
== END | disposition home or self-care (01) ==
LOC: OPBI 15:20
PROVIDERS: PCP Family Medicine; Referring Provider Family Medicine; Visit Provider Family Medicine
DX: Z12.31 Encounter for screening mammogram for malignant neoplasm of breast (principal)
CPT/HCPCS: 77063; 77067

== ENCOUNTER → 2019-11-07 | Outpatient (CLI) | payer MEDICARE, OTHER, SELFPAY ==
[2019-02-04 14:35] VITALS: BMI 38.9
--- NOTE | 2019-11-07 10:28 | RAD_ITS ---
STUDY: X-RAY - LEFT FOOT CLINICAL: Female, 69 years old. Sharp pains by the 4th and 5th al area, no injury TECHNIQUE: 3 view(s) of the foot. COMPARISON: None. FINDINGS: There is an enthesophyte involving the posterior superior calcaneus at the site of insertion of the Achilles tendon. Plantar spur. Normal visualized subtalar, talonavicular, calcaneocuboid, tarsal and tarsometatarsal articulations. Normal metatarsi. Normal metatarsophalangeal joint of the great toe. Normal tibial and fibular sesamoid bones. Normal interphalangeal joint of the great toe. Normal phalanges of the great toe. Normal second through fifth metatarsophalangeal joints. Normal interphalangeal joints and phalanges of the lesser toes. Soft tissue swelling. RAD/Foot min 3 Views IMPRESSION: Soft tissue swelling. Electronically Signed: Chalo Laird, at 10:46 EDT , Service support ,
== END | disposition home or self-care (01) ==
LOC: MTRAD 10:27
PROVIDERS: PCP Family Medicine; Referring Provider Family Medicine; Visit Provider Family Medicine
DX: M79.672 Pain in left foot (principal)
CPT/HCPCS: 73630

== ENCOUNTER → 2020-03-29 09:52 | Outpatient (CLI) | payer MEDICARE, OTHER, SELFPAY ==
[2019-02-04 14:35] VITALS: BMI 38.9
[2020-03-29 12:23] LABS: Erythrocyte Sedimentation Rate 23 mm/hr (0-30)
[2020-03-29 12:56] LABS: ALB/GLOB Ratio 1.2 RATIO (0.9-2.4); AST(SGOT) 18 U/L (15-37); Alanine Aminotransfer ALT/SGPT 33 U/L (13-56); Albumin, Serum 4.1 g/dL (3.2-5.0); Alkaline Phosphatase 87 U/L (45-117); Anion Gap 7 (5-15); BUN 19 mg/dL (7-18); BUN/Creat Ratio 19.3 RATIO (10-20); CRP 3.68 mg/L (0.0-3.0); Calcium,Total 9.5 mg/dL (8.5-10.1); Chloride 105 mmol/L (98-107); Cholesterol 221 mg/dL (200); Creatinine, Serum 0.99 mg/dL (0.55-1.02); EST Glomerular Filtration Rate 59 mL/min (>60); Est Glom Filt Rate - Afr Amer 72 mL/min (>60); Globulin 3.5 g/dL (2.2-4.2); Glucose 92 mg/dL (74-106); High Density Lipoprotein 44 mg/dL; Potassium 4.1 mmol/L (3.5-5.1); Protein, Total 7.6 g/dL (6.4-8.2); Sodium Level 139 mmol/L (136-145); Triglycerides 177 mg/dL; Uric Acid 6.5 mg/dL (2.6-6.0); Very Low Density Lipoprotein 35 mg/dL (5-40)
== END ==
PROVIDERS: PCP Family Medicine; Referring Provider Family Medicine; Visit Provider Family Medicine
DX: E78.00 Pure hypercholesterolemia, unspecified (principal); M25.50 Pain in unspecified joint
CPT/HCPCS: 36415; 80053; 80061; 84550; 85652; 86140

== ENCOUNTER → 2020-06-28 16:42 | Outpatient (CLI) | payer MEDICARE, OTHER, SELFPAY ==
[2019-02-04 14:35] VITALS: BMI 38.9
--- NOTE | 2020-06-28 16:44 | CT_ITS ---
INDICATION: UNILATERAL PRIMARY OSTEOARTHRITIS,L KNEE EXAMINATION: CT Lower Extremity W/O Contrast Injection TECHNIQUE: Helically acquired images were obtained of the left lower extremity. 2-D reformats were performed by the technologist. A radiation dose optimization technique was used for this scan. IV Contrast dosage and agent: None. COMPARISON: None. FINDINGS: BONES AND ALIGNMENT: No acute fractures. The alignment is anatomic. JOINTS: Mild, lateral compartment predominant, tricompartmental degenerative changes of the knee. Mild degenerative changes of the left hip. Small joint effusion in the left knee. SOFT TISSUES: No significant soft tissue swelling. CT/Extremity Lower without Contra IMPRESSION: Mild, lateral compartment predominant, tricompartmental degenerative arthrosis of the knee with small joint effusion. Mild degenerative arthrosis of the left hip. Electronically Signed: Roberto Skinner MD at 22:03 EDT Tel , Service support ,
== END ==
PROVIDERS: PCP Family Medicine; Referring Provider Specialist; Visit Provider Specialist
DX: M17.12 Unilateral primary osteoarthritis, left knee (principal)
CPT/HCPCS: 73700

== ENCOUNTER → 2020-06-29 10:01 | Outpatient (CLI) | payer MEDICARE, OTHER, SELFPAY ==
[2019-02-04 14:35] VITALS: BMI 38.9
[2020-06-29 12:46] LABS: Absolute Lymphocyte Count 2.19 X10^3/uL (0.83-4.51); Absolute Neutrophil Count 2.4 X10^3/uL (2.0-7.7); Basophil# 0.04 X10^3/uL; Basophil% 0.8 % (0-1); Eosinophils% 1.9 % (0-5); Hemoglobin 14.2 g/dL (12.0-15.0); Lymphocyte # 2.19 X10^3/ul (0.83-4.51); Lymphocyte % 42.4 % (19-41); Mean Corp Hgb Conc 32.3 g/dL (32-36); Mean Corpuscular Hgb 27.5 pg (27.0-32.0); Mean Corpuscular Volume 85.3 fL (81-99); Mean Platelet Vol. 10.8 fl (6.2-12.0); Monocyte# 0.46 X10^3/uL; Monocyte% 8.9 % (0-10); NRBC Flagged by Analyzer 0 % (0-5); Neutrophil # 2.36 X10^3/uL (2.7-7.7); Neutrophil % 45.8 % (47-70); Platelet Count 212 K/mm3 (150-450); RBC Distribution Width CV 12.4 % (11.6-14.6); RBC Distribution Width SD 38.7 fl (35.1-43.9); Red Blood Count 5.16 M/mm3 (4.2-5.4); White Blood Count 5.2 K/mm3 (4.4-11.0)
[2020-06-29 13:09] LABS: AST(SGOT) 17 U/L (15-37); Alanine Aminotransfer ALT/SGPT 29 U/L (13-56); Albumin, Serum 3.9 g/dL (3.2-5.0); Alkaline Phosphatase 82 U/L (45-117); Anion Gap 5 (5-15); BUN 16 mg/dL (7-18); BUN/Creat Ratio 16.7 RATIO (10-20); Calcium,Total 9.6 mg/dL (8.5-10.1); Chloride 102 mmol/L (98-107); Cholesterol 214 mg/dL (200); Creatinine, Serum 0.96 mg/dL (0.55-1.02); EST Glomerular Filtration Rate 62 mL/min (>60); Est Glom Filt Rate - Afr Amer 75 mL/min (>60); Globulin 3.8 g/dL (2.2-4.2); Glucose 96 mg/dL (74-106); High Density Lipoprotein 45 mg/dL; Protein, Total 7.7 g/dL (6.4-8.2); Sodium Level 137 mmol/L (136-145); Triglycerides 175 mg/dL; Very Low Density Lipoprotein 35 mg/dL (5-40)
== END ==
PROVIDERS: PCP Family Medicine; Referring Provider Family Medicine; Visit Provider Family Medicine
DX: Z01.818 Encounter for other preprocedural examination (principal); E78.00 Pure hypercholesterolemia, unspecified
CPT/HCPCS: 36415; 80053; 80061; 85025

== ENCOUNTER → 2020-12-19 08:11 | Outpatient (CLI) | payer MEDICARE, OTHER, SELFPAY ==
[2019-02-04 14:35] VITALS: BMI 38.9
--- NOTE | 2020-12-19 08:12 | BI_ITS ---
MAMMOGRAPHY - BILATERAL SCREENING REASON FOR EXAM: Female, 70 years old. Routine annual screening examination. PERTINENT HISTORY: Grandmother with breast cancer. Aunt with breast cancer. TECHNIQUE: Digital bilateral breast agustín (3D mammographic acquisition) in the CC and MLO projections. 2-D mediolateral oblique (MLO) and craniocaudad (CC) views of both breasts were obtained. CAD: Full Field Digital Mammography with Computer Added Detection was performed. COMPARISON: Comparison is made with prior study dated 09/06/2019 and 08/25/2018. FINDINGS: Breast Composition: There are scattered areas of fibroglandular density. There are no dominant masses or suspicious calcifications. No other significant abnormalities are identified. There has been no significant change since the prior study. BI/SCRN MAMM (CAD)W/AGUSTÍN BILAT IMPRESSION: Stable bilateral screening mammogram. Yearly follow-up mammogram recommended. (A) ASSESSMENT CATEGORY: BIRADS Category 1: Negative. A letter regarding these results will be sent to the patient by the facility within 30 days. Approximately 10% of breast cancers are not detected by mammography. A normal mammogram should not delay biopsy of a clinically suspicious abnormality. [id number] Electronically Signed: Chalo Laird MD at 8:52 EDT , Service support ,
--- NOTE | 2020-12-19 08:50 | BD_ITS ---
STUDY: DUAL ENERGY X-RAY ABSORPTIOMETRY / DXA REASON FOR EXAM: Female, 70 years old. 627.8Menopausal postmenopausalBONE DENSITY REASON FOR EXAM TECHNIQUE: Bone Mineral Density (BMD) measurements of lumbar spine and bilateral hips were obtained. COMPARISON: None. FINDINGS: Lumbar Spine (L1-L4): g/cm2 (1.141) / T-score (0.9) / Z-score (3.0) Findings are suggestive of normal bone density with a low fracture risk. Left Femur Total: g/cm2 (0.877) / T-score (-0.5) / Z-score (0.9) Left Femoral Neck: g/cm2 (0.701) / T-score (-1.3) / Z-score (0.4) Right Femur Total: g/cm2 (0.843) / T-score (-0.8) / Z-score (0.7) Right Femoral Neck: g/cm2 (0.71) / T-score (-1.3) / Z-score (0.4) BD/Dexa Bone Density Study IMPRESSION: The patient is considered osteopenic as outlined below according to World Isaías Organization (WHO) criteria with a low fracture risk. Reference Information: The T-score is the number of standard deviations above or below the standard which is normal for young adults at their peak bone mineral density. The World Health Organization (WHO) interprets the T-scores as follows: Above -1 Normal bone density Between -1 and -2.5 Osteopenia Equal to / or below -2.5 Osteoporosis As a practical clinical guideline, osteopenia may be graded as follows: Mild -1 through -1.5 Moderate -1.6 through -2.0 Severe -2.1 through -2.4 The Z-score is the number of standard deviations above or below age-matched controls. A Z-score of less than -1.5 would be considered abnormal. References: 1. NIH Osteoporosis and Related Bone Diseases www osteo.org 2. International Society for Clinical Densitometry www iscd.org 3. National Osteoporosis Foundation www nof.org Electronically Signed: Chalo Laird MD at 12:45 EDT , Service support ,
== END ==
PROVIDERS: PCP Family Medicine; Referring Provider Family Medicine; Visit Provider Family Medicine
DX: N95.9 Unspecified menopausal and perimenopausal disorder (principal); Z12.31 Encounter for screening mammogram for malignant neoplasm of breast
CPT/HCPCS: 77063; 77067; 77080

== ENCOUNTER → 2021-01-04 08:51 | Outpatient (CLI) | payer MEDICARE, OTHER, SELFPAY ==
[2021-01-04 10:34] LABS: AST(SGOT) 15 U/L (15-37); Alanine Aminotransfer ALT/SGPT 23 U/L (13-56); Albumin, Serum 3.7 g/dL (3.2-5.0); Alkaline Phosphatase 97 U/L (45-117); Anion Gap 5 (5-15); BUN 15 mg/dL (7-18); BUN/Creat Ratio 15.6 RATIO (10-20); Calcium,Total 9.4 mg/dL (8.5-10.1); Chloride 101 mmol/L (98-107); Cholesterol 197 mg/dL (200); Creatinine, Serum 0.96 mg/dL (0.55-1.02); EST Glomerular Filtration Rate 61 mL/min (>60); Est Glom Filt Rate - Afr Amer 74 mL/min (>60); Globulin 3.8 g/dL (2.2-4.2); Glucose 96 mg/dL (74-106); High Density Lipoprotein 44 mg/dL; Potassium 3.7 mmol/L (3.5-5.1); Protein, Total 7.5 g/dL (6.4-8.2); Sodium Level 138 mmol/L (136-145); Triglycerides 183 mg/dL; Very Low Density Lipoprotein 37 mg/dL (5-40)
== END ==
PROVIDERS: PCP Family Medicine; Referring Provider Family Medicine; Visit Provider Family Medicine
DX: I10 Essential (primary) hypertension (principal)
CPT/HCPCS: 36415; 80053; 80061

== ENCOUNTER → 2021-07-04 | Outpatient (CLI) | payer MEDICARE, OTHER, SELFPAY ==
[2021-07-04 10:20] LABS: Anion Gap 4 (5-15); BUN 18 mg/dL (7-18); BUN/Creat Ratio 18.6 RATIO (10-20); Chloride 101 mmol/L (98-107); Cholesterol 216 mg/dL (200); Creatinine, Serum 0.97 mg/dL (0.55-1.02); EST Glomerular Filtration Rate 60 mL/min (>60); Est Glom Filt Rate - Afr Amer 73 mL/min (>60); Glucose 101 mg/dL (74-106); High Density Lipoprotein 45 mg/dL; Potassium 3.9 mmol/L (3.5-5.1); Sodium Level 137 mmol/L (136-145); Triglycerides 168 mg/dL; Very Low Density Lipoprotein 34 mg/dL (5-40)
== END | disposition home or self-care (01) ==
LOC: MTLAB 08:51
PROVIDERS: PCP Family Medicine; Referring Provider Family Medicine; Visit Provider Family Medicine
DX: I10 Essential (primary) hypertension (principal)
CPT/HCPCS: 36415; 80048; 80061

== ENCOUNTER → 2021-12-30 | Outpatient (CLI) | payer MEDICARE, OTHER, SELFPAY ==
[2021-12-30 15:40] LABS: Anion Gap 7 (5-15); BUN 14 mg/dL (7-18); BUN/Creat Ratio 15.8 RATIO (10-20); Calcium,Total 9.5 mg/dL (8.5-10.1); Chloride 97 mmol/L (98-107); Cholesterol 202 mg/dL (200); Creatinine, Serum 0.88 mg/dL (0.55-1.02); EST Glomerular Filtration Rate 67 mL/min (>60); Est Glom Filt Rate - Afr Amer 81 mL/min (>60); Glucose 89 mg/dL (74-106); High Density Lipoprotein 49 mg/dL; Potassium 3.7 mmol/L (3.5-5.1); Sodium Level 133 mmol/L (136-145); Triglycerides 138 mg/dL; Very Low Density Lipoprotein 28 mg/dL (5-40)
== END | disposition home or self-care (01) ==
LOC: MFPLAB 11:32
PROVIDERS: PCP Family Medicine; Visit Provider Family Medicine
DX: Z00.00 Encounter for general adult medical examination without abnormal findings (principal); E55.9 Vitamin D deficiency, unspecified; I10 Essential (primary) hypertension
CPT/HCPCS: 36415; 80048; 80061; 82306

== ENCOUNTER → 2022-01-22 | Outpatient (CLI) | payer MEDICARE, OTHER, SELFPAY ==
--- NOTE | 2022-01-22 12:23 | BI_ITS ---
MAMMOGRAPHY - BILATERAL SCREENING REASON FOR EXAM: Female, 71 years old. Routine annual screening examination. PERTINENT HISTORY: Grandmother with breast cancer. Aunt with breast cancer. TECHNIQUE: Digital bilateral breast agustín (3D mammographic acquisition) in the CC and MLO projections. 2-D mediolateral oblique (MLO) and craniocaudad (CC) views of both breasts were obtained. CAD: Full Field Digital Mammography with Computer Added Detection was performed. COMPARISON: Comparison is made with prior study dated 12/19/2020 and 09/06/2019. FINDINGS: Breast Composition: There are scattered areas of fibroglandular density. There are no dominant masses or suspicious calcifications. Stable benign appearing bilateral axillary lymph nodes. No other significant abnormalities are identified. There has been no significant change since the prior study. BI/SCRN MAMM (CAD)W/AGUSTÍN BILAT IMPRESSION: Stable bilateral screening mammogram. Yearly follow-up mammogram recommended. (A) ASSESSMENT CATEGORY: BIRADS Category 2: Benign. A letter regarding these results will be sent to the patient by the facility within 30 days. Approximately 10% of breast cancers are not detected by mammography. A normal mammogram should not delay biopsy of a clinically suspicious abnormality. [id number] Electronically Signed: Chalo Laird MD at 13:29 EST ,
== END | disposition home or self-care (01) ==
LOC: OPBI 12:22
PROVIDERS: PCP Family Medicine; Referring Provider Family Medicine; Visit Provider Family Medicine
DX: Z12.31 Encounter for screening mammogram for malignant neoplasm of breast (principal); Z80.3 Family history of malignant neoplasm of breast
CPT/HCPCS: 77063; 77067

== ENCOUNTER → 2022-01-24 | Outpatient (CLI) | payer MEDICARE, OTHER, SELFPAY ==
[2022-01-24 15:57] LABS: Anion Gap 4 (5-15); BUN 21 mg/dL (7-18); BUN/Creat Ratio 21.9 RATIO (10-20); Calcium,Total 9.3 mg/dL (8.5-10.1); Chloride 99 mmol/L (98-107); Creatinine, Serum 0.96 mg/dL (0.55-1.02); EST Glomerular Filtration Rate 61 mL/min (>60); Est Glom Filt Rate - Afr Amer 74 mL/min (>60); Glucose 95 mg/dL (74-106); Magnesium 2.5 mg/dL (1.6-2.6); Potassium 3.4 mmol/L (3.5-5.1); Sodium Level 135 mmol/L (136-145)
== END | disposition home or self-care (01) ==
LOC: MTLAB 14:09
PROVIDERS: PCP Family Medicine; Referring Provider Family Medicine; Visit Provider Family Medicine
DX: I10 Essential (primary) hypertension (principal)
CPT/HCPCS: 36415; 80048; 83735

== ENCOUNTER → 2023-02-02 | Outpatient (CLI) | payer MEDICARE, OTHER, SELFPAY ==
[2023-02-02 13:02] LABS: Anion Gap 9 (5-15); BUN 16 mg/dL (7-18); BUN/Creat Ratio 18.1 RATIO (10-20); Calcium,Total 9.1 mg/dL (8.5-10.1); Chloride 101 mmol/L (98-107); Cholesterol 193 mg/dL (200); Creatinine, Serum 0.88 mg/dL (0.55-1.02); EST Glomerular Filtration Rate 67 mL/min (>60); Est Glom Filt Rate - Afr Amer 81 mL/min (>60); Glucose 87 mg/dL (74-106); High Density Lipoprotein 55 mg/dL; Potassium 3.7 mmol/L (3.5-5.1); Sodium Level 136 mmol/L (136-145); Triglycerides 176 mg/dL; Very Low Density Lipoprotein 35 mg/dL (5-40)
== END | disposition home or self-care (01) ==
PROVIDERS: PCP Family Medicine; Visit Provider Family Medicine
DX: Z00.00 Encounter for general adult medical examination without abnormal findings (principal)
CPT/HCPCS: 36415; 80048; 80061

== ENCOUNTER → 2023-02-13 | Outpatient (CLI) | payer MEDICARE, OTHER, SELFPAY ==
--- NOTE | 2023-02-13 14:00 | BI_ITS ---
MAMMOGRAPHY - BILATERAL SCREENING REASON FOR EXAM: Female, 72 years old. Routine annual screening examination. PERTINENT HISTORY: Grandmother with breast cancer. Aunt with breast cancer. TECHNIQUE: Digital bilateral breast agustín (3D mammographic acquisition) in the CC and MLO projections. 2-D mediolateral oblique (MLO) and craniocaudad (CC) views of both breasts were obtained. CAD: Full Field Digital Mammography with Computer Added Detection was performed. COMPARISON: Comparison is made with prior study January 22, 2022 and December 19, 2020. FINDINGS: Breast Composition: There are scattered areas of fibroglandular density. There are no dominant masses or suspicious calcifications. Stable benign-appearing bilateral axillary lymph nodes. No other significant abnormalities are identified. There has been no significant change since the prior study. BI/SCRN MAMM (CAD)W/AGUSTÍN BILAT IMPRESSION: Stable bilateral screening mammogram. Yearly follow-up mammogram recommended. (A) ASSESSMENT CATEGORY: BIRADS Category 2: Benign. A letter regarding these results will be sent to the patient by the facility within 30 days. Approximately 10% of breast cancers are not detected by mammography. A normal mammogram should not delay biopsy of a clinically suspicious abnormality. [id number] Electronically Signed: Chalo Laird MD at 14:58 EST ,
== END | disposition home or self-care (01) ==
LOC: OPBI 13:59
PROVIDERS: PCP Family Medicine; Referring Provider Family Medicine; Visit Provider Family Medicine
DX: Z12.31 Encounter for screening mammogram for malignant neoplasm of breast (principal)
CPT/HCPCS: 77063; 77067

== ENCOUNTER → 2023-04-24 | Outpatient (CLI) | payer MEDICARE, OTHER, SELFPAY ==
--- OUTSIDE RECORDS SUMMARY | 2023-04-24 09:40 | XMS RPT_ITS | CCD ---
Author Name Unknown Address [address] [place] [address] Organization [facility] Results Test Name Value Interpretation Reference Range Facil ity Summary Purpose Family History No Family History Records Found Advance Directives No Advanced Directives Records Found Additional Source Comments INFORMATION SOURCE (unrecogn ized section and content) FOR RECORDS PERTAINING TO PATIENTS WHO ARE OR HAVE BEEN ENROLLED IN A CHEMICAL DEPENDENCY/SUBSTANCEABUSE PROGRAM, SOME INFORMATION MAY BE OMITTED. This clinical summary was aggregated from multiple sources. Caution should be exercised in using it in the provision of clinical care. This summary normalizes information from multiple sources, and as a consequence, information in this document may materially change the coding, format and clinical context of patient data. In addition, data may be omitted in some cases. CLINICAL DECISIONS SHOULD BE BASED ON THE PRIMARY CLINICAL RECORDS. [employer] provides no warranty or guarantee of the accuracy or completeness of information in this document.
[2023-04-24 10:06] LABS: Absolute Lymphocyte Count 2.16 X10^3/uL (0.83-4.51); Absolute Neutrophil Count 2.8 X10^3/uL (2.0-7.7); Basophil# 0.03 X10^3/uL; Basophil% 0.5 % (0-1); Eosinophil# 0.13 X10^3/uL; Eosinophils% 2.4 % (0-5); Hematocrit 41.7 % (37-47); Hemoglobin 13.6 g/dL (12.0-15.0); Lymphocyte # 2.16 X10^3/ul (0.83-4.51); Lymphocyte % 39.2 % (19-41); Mean Corp Hgb Conc 32.6 g/dL (32-36); Mean Corpuscular Hgb 28.1 pg (27.0-32.0); Mean Corpuscular Volume 86.2 fL (81-99); Mean Platelet Vol. 10.3 fl (6.2-12.0); Monocyte# 0.39 X10^3/uL; Monocyte% 7.1 % (0-10); NRBC Flagged by Analyzer 0 % (0-5); Neutrophil # 2.79 X10^3/uL (2.7-7.7); Neutrophil % 50.6 % (47-70); Platelet Count 198 K/mm3 (150-450); RBC Distribution Width CV 12.8 % (11.6-14.6); RBC Distribution Width SD 39.8 fl (35.1-43.9); Red Blood Count 4.84 M/mm3 (4.2-5.4); White Blood Count 5.5 K/mm3 (4.4-11.0)
[2023-04-24 10:54] LABS: Anion Gap 4 (5-15); BUN 20 mg/dL (7-18); BUN/Creat Ratio 20.8 RATIO (10-20); Calcium,Total 9.7 mg/dL (8.5-10.1); Chloride 109 mmol/L (98-107); Creatinine, Serum 0.96 mg/dL (0.55-1.02); EST Glomerular Filtration Rate 61 mL/min (>60); Est Glom Filt Rate - Afr Amer 73 mL/min (>60); Glucose 99 mg/dL (74-106); Potassium 4.1 mmol/L (3.5-5.1); Sodium Level 142 mmol/L (136-145)
== END | disposition home or self-care (01) ==
LOC: MTLAB 09:11
PROVIDERS: PCP Family Medicine; Referring Provider Clinical Nurse Specialist Adult Health; Visit Provider Clinical Nurse Specialist Adult Health
DX: Z79.899 Other long term (current) drug therapy (principal)
CPT/HCPCS: 36415; 80048; 85025

== ENCOUNTER → 2023-12-15 | Outpatient (CLI) | payer MEDICARE, OTHER, SELFPAY ==
[2023-12-15 12:29] LABS: Hematocrit 36.4 % (37-47); Hemoglobin 11.9 g/dL (12.0-15.0); Mean Corp Hgb Conc 32.7 g/dL (32-36); Mean Corpuscular Hgb 28.3 pg (27.0-32.0); Mean Corpuscular Volume 86.7 fL (81-99); Mean Platelet Vol. 10.2 fl (6.2-12.0); Platelet Count 292 K/mm3 (150-450); RBC Distribution Width CV 12.9 % (11.6-14.6); RBC Distribution Width SD 40.6 fl (35.1-43.9); White Blood Count 7.5 K/mm3 (4.4-11.0)
[2023-12-15 12:50] LABS: Anion Gap 8 (5-15); BUN 19 mg/dL (7-18); BUN/Creat Ratio 21.3 RATIO (10-20); Calcium,Total 9.3 mg/dL (8.5-10.1); Chloride 98 mmol/L (98-107); Creatinine, Serum 0.89 mg/dL (0.55-1.02); EST Glomerular Filtration Rate 66 mL/min (>60); Est Glom Filt Rate - Afr Amer 80 mL/min (>60); Glucose 100 mg/dL (74-106); Potassium 4.2 mmol/L (3.5-5.1); Sodium Level 133 mmol/L (136-145)
== END | disposition home or self-care (01) ==
LOC: MTLAB 10:41
PROVIDERS: PCP Family Medicine; Referring Provider Physician Assistant Surgical; Visit Provider Physician Assistant Surgical
DX: D72.829 Elevated white blood cell count, unspecified (principal); R94.4 Abnormal results of kidney function studies
CPT/HCPCS: 36415; 80048; 85027

== ENCOUNTER → 2024-03-30 | Outpatient (CLI) | payer MEDICARE, OTHER, SELFPAY ==
--- NOTE | 2024-03-30 09:15 | BI_ITS ---
MAMMOGRAPHY - BILATERAL SCREENING REASON FOR EXAM: Female, 73 years old. Routine annual screening examination. PERTINENT HISTORY: Grandmother with breast cancer. Aunt with breast cancer. TECHNIQUE: Digital bilateral breast wilmer (3D mammographic acquisition) in the CC and MLO projections. 2-D mediolateral oblique (MLO) and craniocaudad (CC) views of both breasts were obtained. CAD: Full Field Digital Mammography with Computer Added Detection was performed. COMPARISON: Comparison is made with prior study dated November 14, 2022 and January 22, 2022. FINDINGS: Breast Composition: There are scattered areas of fibroglandular density. There are no dominant masses or suspicious calcifications. Stable small benign-appearing bilateral axillary lymph nodes. No other significant abnormalities are identified. There has been no significant change since the prior study. BI/SCREENING MAMM (CAD), BILAT IMPRESSION: Stable bilateral screening mammogram. Yearly follow-up mammogram recommended. (A) ASSESSMENT CATEGORY: BIRADS Category 2: Benign. A letter regarding these results will be sent to the patient by the facility within 30 days. Approximately 10% of breast cancers are not detected by mammography. A normal mammogram should not delay biopsy of a clinically suspicious abnormality. [id number] Electronically Signed: Chalo Laird MD at 10:52 EST ,
--- NOTE | 2024-03-30 09:25 | BD_ITS ---
STUDY: DUAL ENERGY X-RAY ABSORPTIOMETRY / DXA REASON FOR EXAM: Female, 73 years old. 627.8Menopausal postmenopausal BONE DENSITY REASON FOR EXAM TECHNIQUE: Bone Mineral Density (BMD) measurements of lumbar spine and bilateral hips were obtained. COMPARISON: Comparison is made with prior study December 19, 2020. FINDINGS: Lumbar Spine (L1-L4): g/cm2 (1.162) / T-score (1.1) / Z-score (3.4) Findings are suggestive of normal bone density with a low fracture risk. Left Femur Total: g/cm2 (0.861) / T-score (-0.7) / Z-score (1.0) Left Femoral Neck: g/cm2 (0.680) / T-score (-1.5) / Z-score (0.4) Right Femur Total: g/cm2 (0.785) / T-score (-1.3) / Z-score (0.4) Right Femoral Neck: g/cm2 (0.741) / T-score (-1.0) / Z-score (1.0) The T-Scores on the most recent prior examination were: Lumbar Spine (L1-L4): There has been improvement of bone density since the previous examination. Left Femur Total: which represents a worsening of 1.9%. Right Femur Total: which represents a worsening of 6.9%. BD/Dexa Bone Density Study IMPRESSION: The patient is considered osteopenic as outlined below according to World Isaías Organization (WHO) criteria with a low fracture risk. There has been worsening of bone density since the previous examination. Reference Information: The T-score is the number of standard deviations above or below the standard which is normal for young adults at their peak bone mineral density. The World Health Organization (WHO) interprets the T-scores as follows: Above -1 Normal bone density Between -1 and -2.5 Osteopenia Equal to / or below -2.5 Osteoporosis As a practical clinical guideline, osteopenia may be graded as follows: Mild -1 through -1.5 Moderate -1.6 through -2.0 Severe -2.1 through -2.4 The Z-score is the number of standard deviations above or below age-matched controls. A Z-score of less than -1.5 would be considered abnormal. References: 1. NIH Osteoporosis and Related Bone Diseases www osteo.org 2. International Society for Clinical Densitometry www iscd.org 3. National Osteoporosis Foundation www nof.org Electronically Signed: Chalo Laird MD at 9:53 EST ,
== END | disposition home or self-care (01) ==
LOC: OPBD 09:14
PROVIDERS: PCP Family Medicine; Referring Provider Nurse Practitioner Family; Visit Provider Nurse Practitioner Family
DX: Z12.31 Encounter for screening mammogram for malignant neoplasm of breast (principal); Z13.820 Encounter for screening for osteoporosis; Z78.0 Asymptomatic menopausal state
CPT/HCPCS: 77067; 77080

== ENCOUNTER → 2024-04-08 | Outpatient (CLI) | payer MEDICARE, OTHER, SELFPAY ==
[2024-04-08 11:23] LABS: Anion Gap 6 (5-15); BUN 17 mg/dL (7-18); BUN/Creat Ratio 18.1 RATIO (10-20); Calcium,Total 9.5 mg/dL (8.5-10.1); Chloride 102 mmol/L (98-107); Cholesterol 202 mg/dL (200); Creatinine, Serum 0.94 mg/dL (0.55-1.02); EST Glomerular Filtration Rate 62 mL/min (>60); Est Glom Filt Rate - Afr Amer 75 mL/min (>60); Glucose 95 mg/dL (74-106); High Density Lipoprotein 47 mg/dL; Potassium 3.8 mmol/L (3.5-5.1); Sodium Level 139 mmol/L (136-145); Triglycerides 162 mg/dL; Very Low Density Lipoprotein 32 mg/dL (5-40)
== END | disposition home or self-care (01) ==
LOC: MTLAB 07:20
PROVIDERS: PCP Family Medicine; Referring Provider Family Medicine; Visit Provider Family Medicine
DX: I10 Essential (primary) hypertension (principal)
CPT/HCPCS: 36415; 80048; 80061

== ENCOUNTER → 2024-09-19 | Outpatient (CLI) | payer MEDICARE, OTHER, SELFPAY ==
[2024-09-19 13:00] LABS: AST(SGOT) 20 U/L (<=31); Alanine Aminotransfer ALT/SGPT 19 U/L (<=34); Albumin, Serum 4.3 g/dL (3.4-4.8); Alkaline Phosphatase 80 U/L (35-104); Anion Gap 11 (5-15); BUN 16 mg/dL (4-19); BUN/Creat Ratio 18.4 RATIO (10-20); Calcium,Total 9.8 mg/dL (7.6-11.0); Carbon Dioxide 26.6 mmol/L (21.0-32.0); Chloride 100 mmol/L (98-108); Cholesterol 201 mg/dL (<=200); Globulin 3.0 g/dL (2.2-4.2); Glucose 97 mg/dL (70-99); Low Density Lipoprotein Calc. 123 mg/dL; Potassium 4.1 mmol/L (3.3-5.1); Triglycerides 171 mg/dL; Very Low Density Lipoprotein 34 mg/dL (5-40); cholesterol:hdl ratio screen 4.54
== END | disposition home or self-care (01) ==
LOC: MFPLAB 10:11
PROVIDERS: PCP Family Medicine; Referring Provider Family Medicine; Visit Provider Family Medicine
DX: I10 Essential (primary) hypertension (principal)
CPT/HCPCS: 36415; 80053; 80061

== ENCOUNTER 2024-11-16 16:04 | Emergency (ER) | payer MEDICARE, OTHER, SELFPAY ==
[2024-11-16 16:06] VITALS: BP 131/72; PULSE 68; RESP 68; TEMP 36.7; O2SAT 13; BMI 37.5
[2024-11-16 16:11] VITALS: BP 131/72; PULSE 64; RESP 11; TEMP 36.7; O2SAT 96
--- NOTE | 2024-11-16 16:54 | EX.ED.DYSGE1 ---
HPI History of Present Illness Chief Complaint: Syncope Narrative Narrative: 74-year-old female with past medical history of HTN, anxiety, DM2 presents for evaluation of syncope. [facility] [place] [facility]. Patient states that he was at the [facility] today sitting down when she developed presyncopal symptoms such as heightened senses, tunnel vision, warmth, lightheadedness. States she woke up lying on the ground with a bystander stating that she caught the patient and that she did not fall or hit her head. Patient states she immediately became nauseous and had nonbilious/nonbloody emesis. Patient has no complaints at this time other than mild nausea. She states she has been drinking fluids throughout the day. She denies any headache, dizziness, shortness of breath, chest pain, abdominal pain, dysuria, weakness, numbness/tingling. Review of systems: See HPI Medications: As listed on the chart Allergies: As listed on the chart PFSH: Per chart Vital signs: As listed on the chart. Reviewed. Physical exam: Gen: A&O x3, NAD Head: Normocephalic, atraumatic Eyes: No sclera icterus, conjunctiva clear, PERRL, EOMI ENT: TMs clear BL, mildly dry mucous membranes, no swelling/lacerations/blood in the mouth or the nares, No nasal septal hematoma, no facial tenderness Neck: Trachea midline, No JVD, Nontender, no carotid bruits CV: RRR, no murmurs, no chest wall TTP Resp: Lungs CTA BL, no w/r/c GI: Abd soft, non-distended, non-tender, no r/r/g Musc: Full ROM, no deformity, no spinal TTP, no inna step-offs, strength +5/5 in all extremities Skin: Warm, dry, intact Neuro: Alert, oriented, grossly intact, sensation intact, GCS 15 Psych: Cooperative, appropriate mood and affect [facility] Medical History (Updated 11/16/24 @ 19:[address] Miguel Giron, ) Lyme disease Post-menopausal Obesity Venous insufficiency Osteoarthrosis GERD (gastroesophageal reflux disease) Hyperlipidemia associated with type 2 diabetes mellitus Essential hypertension Arthritis of left knee Home Medications ?Medication ?Instructions ?Recorded ?Last Taken ?Type atenolol 50 mg tablet 50 mg PO QDAY PALPITATIONS 10/01/17 10/21/17 07:00 History coenzyme Q10 100 mg capsule (Co 100 mg PO QDAY 10/01/17 Unknown History Q-10) glucosam 750 mg-chondroi 100 1 tab PO DAILY 10/01/17 Unknown History mg-hyalur 1.65 mg-CF borate 108 mg tablet ([facility]) abdqwjry-ooox-unjl 8 mg-folic 400 1 tab PO DAILY VITAMIN 10/01/17 Unknown History mcg-K 50 mcg-lutein 300 mcg tablet (Centrum Silver Women) omega 9-vxq-vwy-fish oil 1,000 mg 1 cap PO DAILY SUPPLEMENT 10/01/17 Unknown History (120 mg-180 mg) capsule (Fish Oil) acetaminophen 650 mg 650 mg PO QHS PRN 07/31/20 Unknown History tablet,extended release (Tylenol Arthritis Pain) ascorbate calcium (vitamin C) 500 500 mg PO DAILY 07/31/20 Unknown History mg tablet cholecalciferol (vitamin D3) 25 1,000 unit PO BID 07/31/20 Unknown History mcg (1,000 unit) capsule cyclobenzaprine 10 mg tablet 10 mg PO HS 07/31/20 Unknown History losartan 100 mg tablet 100 mg PO DAILY 07/31/20 Unknown History melatonin 1 mg tablet 3 mg PO HS PRN 07/31/20 Unknown History zinc sulfate 25 mg zinc (110 mg) 25 mg PO DAILY 07/31/20 Unknown History tablet ModuCHOL PO DAILY 08/01/20 Unknown History red yeast rice 600 mg capsule 1,200 mg PO DAILY 08/01/20 Unknown History gabapentin 300 mg capsule 300 mg PO TID 11/16/24 Unknown History hydrochlorothiazide 25 mg tablet 12.5 mg PO DAILY 11/16/24 Unknown History Allergy/AdvReac Type Severity Reaction Status Date / Time meloxicam AdvReac Mild Vomiting Verified 11/16/24 16:05 Family History Unknown Diabetes Mother Colon cancer Diabetes Congestive heart failure (CHF) Aunt Breast cancer Uncle Cancer melanoma Grandfather Cancer stomach Father CAD (coronary artery disease) Rheumatoid arthritis Myocardial infarction, Onset Age: 66 Sister Diabetes Hypertension Surgical History (Updated 11/16/24 @ 16:13 by Rodriguez Mancini) History of bilateral knee replacement H/O bilateral salpingo-oophorectomy (10/21/17) H/O eye surgery History of tonsillectomy H/O: hysterectomy Social History Smoking Status: Never smoker alcohol intake: never substance use type: does not use caffeine: Yes what type of physical activity do you participate in: walking seatbelt use: always do you feel safe at home: Yes EXAM Physical Exam Const Vital Signs: 11/16/24 16:06 11/16/24 16:11 11/16/24 16:14 Temperature 98.1 F 98.1 F Temperature Source Oral Oral Pulse Rate 68 64 Pulse Rate [Lying] Pulse Rate [Sitting (for 1 minute prior to obtaining)] Pulse Rate [Standing (for 1 minute prior to obtaining)] Respiratory Rate 68 H 11 L Respiratory Effort Normal Respiratory Pattern Normal Blood Pressure 131/72 H 131/72 H Blood Pressure [Lying] Blood Pressure [Sitting (for 1 minute prior to obtaining)] Blood Pressure [Standing (for 1 minute prior to obtaining)] Blood Pressure Mean 91 91 Blood Pressure Mean [Lying] Blood Pressure Mean [Sitting (for 1 minute prior to obtaining)] Blood Pressure Mean [Standing (for 1 minute prior to obtaining)] Pulse Ox 13 96 Oxygen Delivery Method Room Air Room Air 11/16/24 17:14 11/16/24 18:00 11/16/24 19:10 Temperature 97.7 F L Temperature Source Temporal Pulse Rate 78 78 Pulse Rate [Lying] 67 Pulse Rate [Sitting (for 1 minute prior to obtaining)] 67 Pulse Rate [Standing (for 1 minute prior to obtaining)] 69 Respiratory Rate 26 H 20 H Respiratory Effort Respiratory Pattern Blood Pressure 125/109 H 125/72 H Blood Pressure [Lying] 101/87 H Blood Pressure [Sitting (for 1 minute prior to obtaining)] 133/67 H Blood Pressure [Standing (for 1 minute prior to obtaining)] 121/64 H Blood Pressure Mean 114 89 Blood Pressure Mean [Lying] 91 Blood Pressure Mean [Sitting (for 1 minute prior to obtaining)] 89 Blood Pressure Mean [Standing (for 1 minute prior to obtaining)] 83 Pulse Ox 98 95 Oxygen Delivery Method Room Air MDM MDM MDM Narrative Medical decision making narrative: 74-year-old female with past medical history of HTN, anxiety, DM2 presents for evaluation of syncope. [facility]. Patient states that he was at the [facility] today sitting down when she developed presyncopal symptoms such as heightened senses, tunnel vision, warmth, lightheadedness. States she woke up lying on the ground with a bystander stating that she caught the patient and that she did not fall or hit her head. Patient states she immediately became nauseous and had nonbilious/nonbloody emesis. Currently asymptomatic except for mild nausea. On presentation, patient no acute distress. Vitals are stable. Differential diagnosis includes but is not limited to dehydration, electrolyte abnormality, orthostatic hypotension, suspect less likely ACS, PE, intracranial abnormality. NS bolus and Zofran ordered. Syncope workup ordered. CBC without leukocytosis or anemia. Platelets unremarkable. D-dimer elevated at 1.01. Cannot rule out PE. CTA chest ordered. Chest x-ray canceled. BMP unremarkable without significant electrolyte abnormality or SETH. Troponin unremarkable x 2. UA negative for ketones. Patient does have 5-10 WBCs with leukocyte esterase. No bacteria. Not endorsing any UTI symptoms. Will send for culture but not treat. CT of the brain negative for any acute abnormality. CTA chest negative for PE. At this point in time, no clear etiology for her syncope. On reevaluation, patient is asymptomatic. She ambulated in the emergency department without difficulty. Follow-up with PCP. She confirmed understand the plan. Patient stable to discharge home. EKG: Interpreted by me/EM physician: EKG shows sinus bradycardia with right bundle branch block. Heart rate 59. Patient has a history of sinus bradycardia on previous EKG. Right bundle branch block is new from October 2017 Impression: 1. Syncope Lab Data Labs: Laboratory Results - last 24 hr 11/16/24 11/16/24 11/16/24 15:50 17:18 17:55 WBC 10.3 RBC 4.84 Hgb 14.0 Hct 41.0 MCV 84.7 MCH 28.9 MCHC 34.1 RDW Std Deviation 38.8 RDW Coeff of Ermias 12.8 Plt Count 243 MPV 10.4 Immature Gran % (Auto) 0.200 Neut % (Auto) 37.4 L Lymph % (Auto) 48.8 H Titus % (Auto) 10.7 H Eos % (Auto) 2.3 Baso % (Auto) 0.6 Absolute Neuts (auto) 3.9 Absolute Lymphs (auto) 5.03 H Nucleated RBC % 0 D-Dimer Quant (PE/DVT) 1.01 H* Sodium 137 Potassium 3.4 Chloride 97 L Carbon Dioxide 24.6 Anion Gap 15 BUN 14 Creatinine 1.16 Estim Creat Clear Calc 57.10 Est GFR (MDRD) Non-Af 50 L BUN/Creatinine Ratio 12.3 Glucose 105 H Calcium 9.8 Troponin T High Sens 11 Troponin T Hi Sens 2 Hr 11 Urine Color Urine Clarity Urine pH Ur Specific [place] Urine Protein Urine Glucose (UA) Urine Ketones Urine Occult Blood Urine Nitrite Urine Bilirubin Urine Urobilinogen Ur Leukocyte Esterase Urine RBC Urine WBC Ur Squamous Epith Cells Urine Bacteria Urine Mucus POC Glucose 110 H 11/16/24 18:20 WBC RBC Hgb Hct MCV MCH MCHC RDW Std Deviation RDW Coeff of Ermias Plt Count MPV Immature Gran % (Auto) Neut % (Auto) Lymph % (Auto) Titus % (Auto) Eos % (Auto) Baso % (Auto) Absolute Neuts (auto) Absolute Lymphs (auto) Nucleated RBC % D-Dimer Quant (PE/DVT) Sodium Potassium Chloride Carbon Dioxide Anion Gap BUN Creatinine Estim Creat Clear Calc Est GFR (MDRD) Non-Af BUN/Creatinine Ratio Glucose Calcium Troponin T High Sens Troponin T Hi Sens 2 Hr Urine Color Yellow Urine Clarity Clear Urine pH 7.0 Ur Specific [place] 1.010 Urine Protein 15 H Urine Glucose (UA) Normal Urine Ketones Negative Urine Occult Blood Negative Urine Nitrite Negative Urine Bilirubin Negative Urine Urobilinogen 1 H Ur Leukocyte Esterase 100 H Urine RBC 0 SEEN Urine WBC 5-10 SEEN Ur Squamous Epith Cells 0-5 SEEN Urine Bacteria 0 SEEN Urine Mucus 0 SEEN POC Glucose Radiography Diagnostic Testing: Clinical Impression(s) from Imaging Studies Chest CTA 11/16/24 17:34 IMPRESSION: 1. No acute abnormality in the brain. 2. Negative for pulmonary embolus Reading Location: [facility] Brain CT 11/16/24 17:40 IMPRESSION: 1. No acute abnormality in the brain. 2. Negative for pulmonary embolus Reading Location: [facility] Discharge Plan Triage Chief Complaint: Syncope ED Provider: Miguel Giron Dx/Rx/DC Orders Clinical Impression: Syncope Instructions: ED Fainting, Uncertain Cause Prescriptions: No Action atenolol 50 mg tablet 50 mg PO QDAY coenzyme Q10 [Co Q-10] 100 mg capsule 100 mg PO QDAY omega 3-bav-jbd-fish oil [Fish Oil] 1,000 mg (120 mg-180 mg) capsule 1 cap PO DAILY ornozvdr-fcjis-yzgjv-CF borate [[facility]] 750 mg-100 mg- 1.65 mg-108 mg tablet 1 tab PO DAILY tzwpcfwj-jwm-aidu-FA-vit K-lut [Centrum Silver Women] 8 mg iron-400 mcg-300 mcg tablet 1 tab PO DAILY cholecalciferol (vitamin D3) 25 mcg (1,000 unit) capsule 1,000 unit PO BID red yeast rice 600 mg capsule 1,200 mg PO DAILY Rx Instructions: give with meal/snack ModuCHOL PO DAILY cyclobenzaprine 10 mg tablet 10 mg PO HS losartan 100 mg tablet 100 mg PO DAILY acetaminophen [Tylenol Arthritis Pain] 650 mg tablet extended release 650 mg PO QHS PRN zinc sulfate 25 mg zinc (110 mg) tablet 25 mg PO DAILY ascorbate calcium (vitamin C) 500 mg tablet 500 mg PO DAILY melatonin 1 mg tablet 3 mg PO HS PRN gabapentin 300 mg capsule 300 mg PO TID hydrochlorothiazide 25 mg tablet 12.5 mg PO DAILY Primary Care Provider: Melvin Sun Referrals: Melvin Sun MD [Primary Care Provider] - 3-5 Days Activity Restrictions/Additional Instructions: Make sure you drink plenty of fluids over the next 24 hours. Follow-up with primary care physician. Return back to ED if symptoms change or worsen. Print Language: Israeli Disposition Disposition: Home, Self Care
[2024-11-16] MEDS: 0.9% Normal Saline (1000mL) 1,000 ML 1000 ML IV (17:09)
[2024-11-16 17:13] LABS: Hematocrit 41.0 % (37-47); Hemoglobin 14.0 g/dL (12.0-15.0); Immature Granulocytes Count 0.020 X10^3/uL (0.0-0.0); Mean Corp Hgb Conc 34.1 g/dL (32-36); Mean Corpuscular Volume 84.7 fL (81-99); Mean Platelet Vol. 10.4 fl (6.2-12.0); NRBC Flagged by Analyzer 0 % (0-5); POSITIVE DIFFERENTIAL YES; Platelet Count 243 K/mm3 (150-450); RBC Distribution Width CV 12.8 % (11.6-14.6); RBC Distribution Width SD 38.8 fl (35.1-43.9); Red Blood Count 4.84 M/mm3 (4.2-5.4); White Blood Count 10.3 K/mm3 (4.4-11.0)
[2024-11-16 17:14] VITALS: BP 101/87; BP 121/64; BP 133/67; PULSE 67; PULSE 69
[2024-11-16 17:25] LABS: D-Dimer Quantitative (DVT/PE) 1.01 FEU/ug/m (0.27-0.49)
[2024-11-16 17:33] LABS: Anion Gap 15 (5-15); BUN 14 mg/dL (4-19); BUN/Creat Ratio 12.3 RATIO (10-20); Calcium,Total 9.8 mg/dL (7.6-11.0); Carbon Dioxide 24.6 mmol/L (21.0-32.0); Chloride 97 mmol/L (98-108); Estimated Creatinine Clearance 57.10 ml/min (50-250); Glucose 105 mg/dL (70-99); Potassium 3.4 mmol/L (3.3-5.1); Troponin T High Sensitivity 11 ng/L (<=14)
--- NOTE | 2024-11-16 17:34 | CT_ITS ---
PROCEDURE: CTA CHEST W/WO CONTRAST; BRAIN/HEAD WITHOUT CONTRAST 11/16/2024 REASON FOR EXAM: PE, ELEVATED DIMER; SYNCOPE TECHNIQUE: Procedure Code: CTCTACHWW; CTBR Modality: CT Procedure: CTA CHEST W/WO CONTRAST; BRAIN/HEAD WITHOUT CONTRAST Multiplanar Sagittal and Coronal images were obtained. 3D reconstructions CONTRAST: Not specified One or more dose reduction techniques were used (e.g., Automated exposure control, adjustment of the mA and/or kV according to patient size, use of iterative reconstruction technique). RADIATION DOSE SUMMARY: CTDlvol: 79 mGy DLP: 1269 mGycm COMPARISON: . FINDINGS: CT study of the brain demonstrates no intracranial mass or hemorrhage. Negative for hydrocephalus. Negative for acute infarct. Bony calvarium intact. Inspection of the chest demonstrates adequate thoracic contrast bolus within the pulmonary arterial tree. No pulmonary emboli are noted. Upper abdomen unremarkable. Normal thoracic aorta. No pericardial fluid. Mild coronary calcification. No thoracic aneurysm or dissection. Inspection of the chest demonstrates no consolidation, fibrosis, edema or significant pleural fluid. 4 mm noncalcified benign subpleural nodule right lower lobe. CT/CTA Chest W/WO Contrast IMPRESSION: 1. No acute abnormality in the brain. 2. Negative for pulmonary embolus Reading Location: [facility]
--- NOTE | 2024-11-16 17:40 | CT_ITS ---
PROCEDURE: CTA CHEST W/WO CONTRAST; BRAIN/HEAD WITHOUT CONTRAST 11/16/2024 REASON FOR EXAM: PE, ELEVATED DIMER; SYNCOPE TECHNIQUE: Procedure Code: CTCTACHWW; CTBR Modality: CT Procedure: CTA CHEST W/WO CONTRAST; BRAIN/HEAD WITHOUT CONTRAST Multiplanar Sagittal and Coronal images were obtained. 3D reconstructions CONTRAST: Not specified One or more dose reduction techniques were used (e.g., Automated exposure control, adjustment of the mA and/or kV according to patient size, use of iterative reconstruction technique). RADIATION DOSE SUMMARY: CTDlvol: 79 mGy DLP: 1269 mGycm COMPARISON: . FINDINGS: CT study of the brain demonstrates no intracranial mass or hemorrhage. Negative for hydrocephalus. Negative for acute infarct. Bony calvarium intact. Inspection of the chest demonstrates adequate thoracic contrast bolus within the pulmonary arterial tree. No pulmonary emboli are noted. Upper abdomen unremarkable. Normal thoracic aorta. No pericardial fluid. Mild coronary calcification. No thoracic aneurysm or dissection. Inspection of the chest demonstrates no consolidation, fibrosis, edema or significant pleural fluid. 4 mm noncalcified benign subpleural nodule right lower lobe. CT/Brain/Head without Contrast IMPRESSION: 1. No acute abnormality in the brain. 2. Negative for pulmonary embolus Reading Location: [facility]
[2024-11-16 18:00] VITALS: BP 125/109; PULSE 78; RESP 26; O2SAT 98
[2024-11-16 18:19] LABS: Troponin T High Sens 2 HR 11 ng/L (<=14)
[2024-11-16 18:24] LABS: Mucous, Urine 0 SEEN /hpf (<or=2+); Red Blood Cells-Urine 0 SEEN /hpf (0-5)
[2024-11-16 18:26] LABS: Color, Urine Yellow (Yellow); Glucose, Dipstick Normal (Normal); Ketone-Dipstick Negative (Negative); Leukocyte Esterase-Dipstick 100 /ul (Negative); Nitrite-Dipstick Negative (Negative); Occult Blood-Urine Negative /ul (Negative); Protein-Dipstick 15 mg/dl (Negative); Specific Gravity, Urine 1.010 (1.002-1.030); Urine Bilirubin Dipstick Negative (Negative)
[2024-11-16 18:53] LABS: Squamous Epithelial Cells - UA 0-5 SEEN /hpf (5-10)
[2024-11-16 19:10] VITALS: BP 125/72; PULSE 78; RESP 20; TEMP 36.5; O2SAT 95
[2024-11-16 19:58] VITALS: BP 142/61; PULSE 74; RESP 20; TEMP 37; O2SAT 98
== END 2024-11-16 20:03 | disposition home or self-care (01) ==
PROVIDERS: Emergency Provider Surgery; PCP Family Medicine; Visit Provider Surgery
DX: R55 Syncope and collapse (principal); E11.9 Type 2 diabetes mellitus without complications; F41.9 Anxiety disorder, unspecified; I10 Essential (primary) hypertension; K21.9 Gastro-esophageal reflux disease without esophagitis; E78.5 Hyperlipidemia, unspecified; Z79.899 Other long term (current) drug therapy
CPT/HCPCS: 70450; 71275; 80048; 81001; 82962; 84484; 85025; 85379; 87086; 87088; 93005; 96361; 96374; 99285; Q9967; A4216; J2405

== ENCOUNTER → 2025-01-06 | Outpatient (CLI) | payer MEDICARE, OTHER, SELFPAY ==
[2025-01-06 12:56] LABS: Anion Gap 11 (5-15); BUN 14 mg/dL (4-19); BUN/Creat Ratio 16.9 RATIO (10-20); Calcium,Total 9.6 mg/dL (7.6-11.0); Carbon Dioxide 25.8 mmol/L (21.0-32.0); Chloride 100 mmol/L (98-108); Cholesterol 193 mg/dL (<=200); Glucose 93 mg/dL (70-99); Low Density Lipoprotein Calc. 119 mg/dL; Potassium 3.9 mmol/L (3.3-5.1); Triglycerides 156 mg/dL; Very Low Density Lipoprotein 31 mg/dL (5-40); cholesterol:hdl ratio screen 4.14
== END | disposition home or self-care (01) ==
LOC: MFPLAB 10:10
PROVIDERS: PCP Family Medicine; Visit Provider Family Medicine
DX: Z00.00 Encounter for general adult medical examination without abnormal findings (principal); I10 Essential (primary) hypertension
CPT/HCPCS: 36415; 80048; 80061

== ENCOUNTER → 2025-02-27 | Outpatient (CLI) | payer MEDICARE, OTHER, SELFPAY ==
--- NOTE | 2025-02-27 14:18 | RAD_ITS ---
PROCEDURE: LEFT HIP, UNI W/ PELVIS 2-3 VIEWS 02/27/2025 REASON FOR EXAM: PAIN IN HIP TECHNIQUE: Procedure Code: RADHP Modality: DX Procedure: HIP, UNI W/ PELVIS 2-3 VIEWS COMPARISON: No relevant prior. FINDINGS: No acute fractures. Hip joint is maintained. No osteoblastic or osteolytic lesions. Incidental note is made of narrowing of the right hip joint medially. Unremarkable AP pelvis. Phleboliths in the right hemipelvis. RAD/HIP, UNI W/ Pelvis 2-3 Views IMPRESSION: Unremarkable left hip and pelvis. Narrowing of the medial aspect of the right hip joint. Reading Location: [place] [id number]
== END | disposition home or self-care (01) ==
LOC: MTRAD 14:16
PROVIDERS: PCP Family Medicine; Referring Provider Clinical Nurse Specialist Adult Health; Visit Provider Clinical Nurse Specialist Adult Health
DX: M25.552 Pain in left hip (principal)
CPT/HCPCS: 73502